=== PATIENT | female | born 1935 | race Two or more races ===

== ENCOUNTER 2023-10-25 11:09 | Outpatient (REF) | payer MEDICARE, MEDICAID, SELFPAY ==
[2023-10-25 13:43] LABS: Vitamin B12 1145 pg/mL (200-900)
[2023-10-26 04:41] LABS: Syphilis Screen Nonreactive (Nonreactive)
== END 2023-10-25 11:10 | disposition home or self-care (01) ==
LOC: HO.LAB 11:09
PROVIDERS: PCP Internal Medicine; Visit Provider Psychiatry & Neurology Neurology
DX: G30.9 Alzheimer's disease, unspecified (principal)
CPT/HCPCS: 36415; 82607; 86780